=== PATIENT | female | born 2005 | race Caucasian/White ===

== ENCOUNTER 2024-09-26 11:48 | Emergency (ER) | payer SELFPAY ==
[2024-09-26 12:05] VITALS: BP 120/85
[2024-09-26 12:29] VITALS: BMI 24.6
[2024-09-26 12:54] VITALS: BP 119/91
--- NOTE | 2024-09-26 13:27 | EDRN ---
Pt in BR attempting urine spec at this time.
[2024-09-26 14:11] LABS: HCG, Urine Qualitative Screen Negative
--- NOTE | 2024-09-26 14:14 | EDRN ---
Pt is upset that she has not been seen as of yet. Pt remains in cervical collar at this time. Pt has pain from shoulders up to top of head. Pt walking around and talking to family and friends in room.
--- NOTE | 2024-09-26 14:16 | EDRN ---
Nallely CUELLAR in w/ pt at this time.
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
--- NOTE | 2024-09-26 14:38 | EDRN ---
Xray imaging could not be completed until collar removed. Radiology only performed a one-view. Nallely CUELLAR was sent a TT about this.
--- NOTE | 2024-09-26 14:39 | EDRN ---
Cervical collar okay to remove and can send pt for other views per Nallely CUELLAR.
--- NOTE | 2024-09-26 14:41 | EDRN ---
cervical collar removed
[2024-09-26 15:15] VITALS: BP 121/80
[2024-09-26 15:22] VITALS: BP 121/80
== END 2024-09-26 15:15 | disposition home or self-care (01) ==
LOC: EMR 11:48
PROVIDERS: EMERGENCY PHYSICIAN Emergency Medicine; FAMILY PHYSICIAN Family Medicine
DX: S16.1XXA Strain of muscle, fascia and tendon at neck level, initial encounter (principal); V43.52XA Car driver injured in collision with other type car in traffic accident, initial encounter; Y92.410 Unspecified street and highway as the place of occurrence of the external cause; F17.290 Nicotine dependence, other tobacco product, uncomplicated
CPT/HCPCS: 99283; 72040; 81025